=== PATIENT | female | born 1985 | race Caucasian/White ===

== ENCOUNTER 2024-11-02 05:29 | Day surgery (SDC) | payer OTHER ==
[2024-10-29 12:44] VITALS: BMI 26.2
[2024-11-02] MEDS: ceFAZolin SODIUM 1 GM VIAL IVPB ONE
[2024-11-02] MEDS ORDERED: LIDOCAINE HCL 2% 100 MG/5 ML DISP.SYRIN ONE (08:51)
[2024-11-02] MEDS ORDERED: DEXAMETHASONE SOD PHOSPHATE 4 MG/1 ML VIAL ONE (08:51)
[2024-11-02] MEDS ORDERED: MIDAZOLAM HCL 2 MG/2 ML SINGLE DOSE VIAL ONE (08:51)
[2024-11-02] MEDS ORDERED: PROPOFOL 20 ML ONE (08:51)
[2024-11-02] MEDS ORDERED: ONDANSETRON 4 MG/2 ML VIAL ONE (08:51)
[2024-11-02] MEDS ORDERED: ONDANSETRON 4 MG/2 ML VIAL IVPUSH PRN (09:54)
[2024-11-02] MEDS: LACTATED RINGERS SOLUTION 1,000 ML IV SCH (11:03)
[2024-11-02 12:56] VITALS: BP 120/70; PULSE 82; RESP 18; TEMP 97
== END 2024-11-02 12:35 | disposition home or self-care (01) ==
LOC: JASU-SURG 05:29
PROVIDERS: ATTEND Obstetrics & Gynecology
PROC: 0UDB8ZZ Extraction of Endometrium, Via Natural or Artificial Opening Endoscopic (ICD-10-PCS; principal; 2024-11-02 09:00)
DX: N84.0 Polyp of corpus uteri (principal)
CPT/HCPCS: 81025; 88305-TC; 94760